=== PATIENT | male | born 1990 | race Caucasian/White ===

== ENCOUNTER 2021-05-14 02:27 | Emergency (ER) | payer OTHER ==
--- NOTE | 2021-05-14 02:57 | EDM.PDOC ---
ED HPI GENERAL MEDICAL PROBLEM - General Chief Complaint: Abdominal Pain Stated Complaint: VOMITING FOR 4 DAYS/NOW HAS BLOOD IN VOMIT Time Seen by Provider: 05/14/21 02:49 Source of Information: Reports: Patient History Limitations: Reports: No Limitations - History of Present Illness INITIAL COMMENTS - FREE TEXT/NARRATIVE: Patient is a 30-year-old male who states he has been very ill for the last 4 days. Patient has been vomiting continuously and also having diarrhea which she is treated with some guhv-xhp-vnzokst medicine with some relief. Patient notes today he has had some blood in his emesis that is not coffee-ground in nature but looks like "Tarun-Aid". Patient is complaining of severe epigastric pain that is worse when he tries to eat or drink anything. He states before this started he did drink alcohol on a daily basis. He denies ever having similar symptoms in the past has no history of pancreatitis or gallstones or ulcers. He denies having any bloody or tarry looking stool. Patient is complaining of having rigors but denies any fever but feels sweaty. He is complaining of having dysuria without hematuria. Patient has no previous abdominal surgeries. It is unclear to me why he waited 4 days before he came in with these symptoms. Duration: Day(s): (Four) Location: Reports: Abdomen Quality: Reports: Ache, Throbbing Severity: Severe Improves with: Reports: None Worsens with: Reports: Eating Associated Symptoms: Reports: Diaphoresis, Fever/Chills, Malaise, Nausea/Vomiting. Denies: Cough, Shortness of Breath Upper Abdomen Pain Score (Numeric/FACES): 7 - Related Data Allergies Allergy/AdvReac Type Severity Reaction Status Date / Time No Known Allergies Allergy Verified 05/14/21 02:42 Home Meds: Home Meds LORazepam [Ativan] 1 mg PO Q8H PRN #10 tab 05/14/21 [Rx] Past Medical History - Past Surgical History HEENT Surgical History: Reports: Myringotomy w Tube(s) Social & Family History - Tobacco Use Tobacco Use Status *Q: Light Tobacco User Years of Tobacco use: 10 Packs/Tins Daily: 0.2 - Caffeine Use Caffeine Use: Reports: Coffee - Recreational Drug Use Recreational Drug Use: Yes Recreational Drug Type: Reports: Marijuana/Hashish Recreational Drug Use Frequency: Rarely ED ROS GENERAL - Review of Systems Review Of Systems: Comprehensive ROS is negative, except as noted in HPI. ED EXAM, GI/ABD - Physical Exam Exam: See Below Exam Limited By: No Limitations General Appearance: Alert, Anxious, Moderate Distress Eyes: Bilateral: Normal Appearance Head: Normocephalic Neck: Normal Inspection, Supple, Non-Tender Respiratory/Chest: No Respiratory Distress, Lungs Clear, Normal Breath Sounds Cardiovascular: Regular Rate, Rhythm, No Edema, No JVD GI/Abdominal Exam: Normal Bowel Sounds, No Organomegaly, No Distention, Tender (Patient is most tender in his upper abdomen in the epigastric region.) Back Exam: Normal Inspection. No: CVA Tenderness (L), CVA Tenderness (R) Extremities: Normal Inspection Neurological: Alert, Oriented Psychiatric: Anxious Skin Exam: Warm, Normal Color, No Rash. No: Diaphoretic Lymphatic: No Adenopathy Course - Vital Signs Text/Narrative:: Patient feels better with IV fluids and medications. He is gotten more jittery and even after being given lorazepam IV. His lab work is all normal. I am thinking at this point he is having somewhat drug withdrawal symptoms. He is moving continuously pacing around the room for this reason his IV came out. I am discharging him home with a prescription for some lorazepam and advised him not to drink any alcohol and use yrvz-ahe-stabdno Prilosec and antiacids as needed. He may return to emergency department if symptoms are worse. Last Recorded V/S: Last Vital Signs Temp 96.2 F L 05/14/21 02:38 Pulse 113 H 05/14/21 02:38 Resp 18 05/14/21 02:38 BP 153/105 H 05/14/21 02:38 Pulse Ox 95 05/14/21 02:38 - Orders/Labs/Meds Orders: Active Orders 24 hr Category Date Time Status Peripheral IV Care [RC] . DIRECTED Care 05/14/21 03:01 Active UA W/O MICROSCOPIC [URIN] Stat Lab 05/14/21 03:00 Ordered Sodium Chloride 0.9% [Saline Flush] Med 05/14/21 03:01 Active 10 ml FLUSH ASDIRECTED PRN Peripheral IV Insertion Adult [OM.PC] Routine Oth 05/14/21 03:00 Ordered Medication Orders Sodium Chloride (Sodium Chloride 0.9% 10 Ml Syringe) 10 ml FLUSH ASDIRECTED PRN PRN Reason: Keep Vein Open Last Admin: 05/14/21 03:10 Dose: 10 ml Documented by: TRE Labs: Laboratory Tests 05/14/21 05/14/21 05/14/21 Range/Units 03:05 03:05 03:20 WBC 8.34 (4.23-9.07) K/mm3 RBC 5.08 (4.63-6.08) M/mm3 Hgb 15.7 (13.7-17.5) gm/dl Hct 44.0 (40.1-51.0) % MCV 86.6 (79.0-92.2) fl MCH 30.9 (25.7-32.2) pg MCHC 35.7 H (32.2-35.5) g/dl RDW Std Deviation 40.7 (35.1-43.9) fL Plt Count 241 (163-337) K/mm3 MPV 10.7 (9.4-12.3) fl Neutrophils % (Manual) 50 (40-60) % Band Neutrophils % 0 (0-10) % Lymphocytes % (Manual) 39 (20-40) % Atypical Lymphs % 0 % Monocytes % (Manual) 7 (2-10) % Eosinophils % (Manual) 3 (0.8-7.0) % Basophils % (Manual) 1 (0.2-1.2) Platelet Estimate Adequate RBC Morph Comment Normal Sodium 149 H (136-145) mEq/L Potassium 4.1 (3.5-5.1) mEq/L Chloride 111 H (98-107) mEq/L Carbon Dioxide 27 (21-32) mEq/L Anion Gap 15.1 H (5-15) BUN 11 (7-18) mg/dL Creatinine 1.3 (0.7-1.3) mg/dL Est Cr Clr Drug Dosing 89.54 mL/min Estimated GFR (MDRD) > 60 (>60) mL/min BUN/Creatinine Ratio 8.5 L (14-18) Glucose 113 H (70-99) mg/dL Lactic Acid 0.7 (0.4-2.0) mmol/L Calcium 8.1 L (8.5-10.1) mg/dL Total Bilirubin 0.4 (0.2-1.0) mg/dL AST 33 (15-37) U/L ALT 46 (16-63) U/L Alkaline Phosphatase 77 (46-116) U/L Total Protein 7.4 (6.4-8.2) g/dl Albumin 3.7 (3.4-5.0) g/dl Globulin 3.7 gm/dL Albumin/Globulin Ratio 1.0 (1-2) Lipase 174 (73-393) U/L Meds: Medications Generic Name Dose Route Start Last Admin Trade Name Frereji PRN Reason Stop Dose Admin Sodium Chloride 10 ml 05/14/21 03:01 05/14/21 03:10 Sodium Chloride 0.9% 10 Ml Syringe FLUSH 10 ml ASDIRECTED PRN Administration Keep Vein Open Discontinued Medications Generic Name Dose Route Start Last Admin Trade Name Dannieq PRN Reason Stop Dose Admin Hydromorphone HCl 1 mg 05/14/21 03:00 05/14/21 03:09 Hydromorphone 1 Mg/Ml Syringe IVPUSH 05/14/21 03:01 1 mg ONETIME ONE Administration Sodium Chloride 1,000 mls @ 1,000 mls/hr 05/14/21 03:00 05/14/21 03:09 Normal Saline IV 05/14/21 03:59 1,000 mls/hr ONETIME ONE Administration Lorazepam 1 mg 05/14/21 03:34 05/14/21 03:41 Lorazepam 2 Mg/Ml Sdv IVPUSH 05/14/21 03:35 1 mg ONETIME ONE Administration Ondansetron HCl 4 mg 05/14/21 03:00 05/14/21 03:09 Ondansetron 4 Mg/2 Ml Sdv IVPUSH 05/14/21 03:01 4 mg ONETIME ONE Administration Pantoprazole Sodium 80 mg 05/14/21 03:01 05/14/21 03:09 Pantoprazole 40 Mg Vial IVPUSH 05/14/21 03:02 80 mg BOLUS ONE Administration Departure - Departure Time of Disposition: 04:07 Disposition: Home, Self-Care 01 Condition: Good Clinical Impression: Gastritis, Withdrawal complaint - Discharge Information Instructions: Gastritis, Adult, [id number] Referrals: PCP,Not In Area [Primary Care Provider] - Forms: ED Department Discharge Additional Instructions: Do not drink any alcohol. Cizg-jtd-bzouvri Prilosec and antiacids as needed. Lorazepam as needed. Go to detox if indicated. Return to ER if worse. Follow- up with PCP if symptoms continue. Clear liquid diet advance as tolerated. Sepsis Event Note (ED) - Evaluation Sepsis Screening Result: Possible Sepsis Risk - Focused Exam Vital Signs: Vital Signs Temp Pulse Resp BP Pulse Ox 05/14/21 02:38 96.2 F L 113 H 18 153/105 H 95 - My Orders Last 24 Hours: My Active Orders 05/14/21 03:00 UA W/O MICROSCOPIC [URIN] Stat Peripheral IV Insertion Adult [OM.PC] Routine 05/14/21 03:01 Peripheral IV Care [RC] . DIRECTED Sodium Chloride 0.9% [Saline Flush] 10 ml FLUSH ASDIRECTED PRN - Assessment/Plan Last 24 Hours: My Active Orders 05/14/21 03:00 UA W/O MICROSCOPIC [URIN] Stat Peripheral IV Insertion Adult [OM.PC] Routine 05/14/21 03:01 Peripheral IV Care [RC] . DIRECTED Sodium Chloride 0.9% [Saline Flush] 10 ml FLUSH ASDIRECTED PRN
[2021-05-14] MEDS ORDERED: Ondansetron 4 MG/2 ML SDV IVPUSH ONE (03:00)
[2021-05-14] MEDS ORDERED: HYDROmorphone 1 MG/ML Syringe IVPUSH ONE (03:00)
[2021-05-14] MEDS ORDERED: Sodium Chloride 0.9% 1,000 ML IV ONE (03:00)
[2021-05-14] MEDS ORDERED: Sodium Chloride 0.9% 10 ML Syringe FLUSH PRN (03:01)
[2021-05-14] MEDS ORDERED: Pantoprazole 40 MG Vial IVPUSH ONE (03:01)
[2021-05-14] MEDS ORDERED: LORazepam 2 MG/ML SDV IVPUSH ONE (03:34)
== END 2021-05-14 04:18 | disposition home or self-care (01) ==
LOC: JD.ED 02:27
DX: K29.70 Gastritis, unspecified, without bleeding (principal); F19.239 Other psychoactive substance dependence with withdrawal, unspecified; Z72.0 Tobacco use
CPT/HCPCS: 36415; 80053; 83605; 83690; 85007; 85027; 96374; 96375; 99284; C9113; J1170; J2060; J2405; J7030

== ENCOUNTER 2021-05-25 11:41 | Emergency (ER) | payer OTHER ==
[2021-05-25] MEDS ORDERED: Sodium Chloride 0.9% 10 ML Syringe FLUSH PRN (12:04)
[2021-05-25] MEDS ORDERED: Sodium Chloride 0.9% 1,000 ML IV ONE (12:07)
[2021-05-25] MEDS ORDERED: Pantoprazole 40 MG Vial IVPUSH ONE (12:07)
[2021-05-25] MEDS ORDERED: Famotidine 20 MG/2 ML SDV IVPUSH ONE (12:10)
--- NOTE | 2021-05-25 12:22 | EDM.PDOC ---
ED HPI GENERAL MEDICAL PROBLEM - General Chief Complaint: Abdominal Pain Stated Complaint: ABDOMINAL PAIN Time Seen by Provider: 05/25/21 11:47 Source of Information: Reports: Patient History Limitations: Reports: No Limitations - History of Present Illness INITIAL COMMENTS - FREE TEXT/NARRATIVE: 30-year-old male presents the emergency department today with a 4-day history of nausea, generalized abdominal pain however primarily in the epigastric area, watery diarrhea that is brown in color, headache, diaphoresis and 2 episodes of vomiting bile colored emesis today. He has had a cough productive of dark vázquez- colored sputum. He is a smoker. He also does admit to drinking at least 3 days out of the week several drinks at a time. He was seen here in the emergency department 11 days ago with complaints of a 4-day history of epigastric discomfort and vomiting blood. At that time he was instructed to start taking a proton pump inhibitor daily however he states he has not done this. His appetite has been poor over the course the last 4 days. He also reports burning with urination. Patient states that he had his [place] Covid vaccine with the second dose being on March 08. He denies taking any prescription medications and he does not have a primary care provider in this area as he states he just moved here from [place]. Epigastric Pain Score (Numeric/FACES): 8 - Related Data Allergies Allergy/AdvReac Type Severity Reaction Status Date / Time No Known Allergies Allergy Verified 05/25/21 11:51 Home Meds: Home Meds . [No Known Home Meds] 05/25/21 [History] Past Medical History Endocrine/Metabolic History: Reports: Obesity/BMI 30+ - Past Surgical History HEENT Surgical History: Reports: Myringotomy w Tube(s) Social & Family History - Tobacco Use Tobacco Use Status *Q: Current Every Day Tobacco User Years of Tobacco use: 2 Packs/Tins Daily: 0.5 - Caffeine Use Caffeine Use: Reports: Coffee - Recreational Drug Use Recreational Drug Use: No ED ROS GENERAL - Review of Systems Review Of Systems: Comprehensive ROS is negative, except as noted in HPI. ED EXAM, GI/ABD - Physical Exam Exam: See Below Exam Limited By: No Limitations General Appearance: Alert, WD/WN, Mild Distress Ears: Normal External Exam, Hearing Grossly Normal Nose: Normal Inspection Throat/Mouth: Normal Inspection, Normal Lips, Normal Voice, No Airway Compromise Head: Atraumatic, Normocephalic Neck: Normal Inspection, Supple Respiratory/Chest: No Respiratory Distress, No Accessory Muscle Use, Chest Non- Tender, Crackles (Fine crackles noted to bilateral bases) Cardiovascular: Normal Peripheral Pulses, Regular Rate, Rhythm, No Edema, No Mur mur GI/Abdominal Exam: Normal Bowel Sounds, Soft, No Distention, Tender (Noted to all quadrants however primarily in the epigastric area) (Male) Exam: Deferred Rectal (Males) Exam: Deferred Back Exam: Normal Inspection, Full Range of Motion Extremities: Normal Inspection, Normal Range of Motion, Non-Tender, No Pedal Edema, Normal Capillary Refill Neurological: Alert, Oriented, Normal Cognition Psychiatric: Normal Affect, Normal Mood Skin Exam: Warm, Dry, Intact, Normal Color, No Rash Lymphatic: No Adenopathy #1 Interpretation EKG Date: 05/25/21 Time: 12:22 Rhythm: NSR Rate (Beats/Min): 73 [place]: Normal P-Wave: Present QRS: Normal ST-T: Normal QT: Normal EKG Interpretation Comments: Per Dr. Crocker interpretation: Sinus rhythm at 73 bpm; initial poor R wave progression; T wave inversion V1 and V2; diffuse early repolarization pattern Course - Vital Signs Text/Narrative:: As stated above, patient presents with a 4-day history of cough, nausea, vomiting, watery diarrhea, and generalized abdominal pain however primarily in the epigastric area. He also notes urinary symptoms. Upon assessment the patient does have crackles noted in the bilateral bases. Generalized abdominal tenderness with palpation however more severe tenderness in the epigastric area. He is afebrile. We have ordered an EKG, portable view of the chest, labs to include a CBC, CMP, magnesium, CRP, troponin, and a UA with micro and culture if indicated. We will also give him a liter of normal saline IV as he is likely dehydrated, 40 mg Protonix IV and 20 mg of Pepcid IV due to the epigastric discomfort nausea and vomiting and history of alcohol consumption. Last Recorded V/S: Last Vital Signs Temp 97.8 F 05/25/21 14:38 Pulse 62 05/25/21 14:38 Resp 16 05/25/21 14:38 BP 142/113 H 05/25/21 14:38 Pulse Ox 98 05/25/21 14:38 - Orders/Labs/Meds Orders: Active Orders 24 hr Category Date Time Status Sodium Chloride 0.9% [Saline Flush] Med 05/25/21 12:04 Active 10 ml FLUSH ASDIRECTED PRN Saline Lock Insert [OM.PC] Stat Oth 05/25/21 12:04 Ordered Medication Orders Sodium Chloride (Sodium Chloride 0.9% 10 Ml Syringe) 10 ml FLUSH ASDIRECTED PRN PRN Reason: Keep Vein Open Last Admin: 05/25/21 12:43 Dose: 10 ml Documented by: MELINA Labs: Laboratory Tests 05/25/21 05/25/21 05/25/21 Range/Units 12:35 12:43 12:43 WBC 3.85 L (4.23-9.07) K/mm3 RBC 5.13 (4.63-6.08) M/mm3 Hgb 15.9 (13.7-17.5) gm/dl Hct 44.7 (40.1-51.0) % MCV 87.1 (79.0-92.2) fl MCH 31.0 (25.7-32.2) pg MCHC 35.6 H (32.2-35.5) g/dl RDW Std Deviation 41.8 (35.1-43.9) fL Plt Count 211 (163-337) K/mm3 MPV 10.1 (9.4-12.3) fl Neut % (Auto) 46.3 (34.0-67.9) % Lymph % (Auto) 33.5 (21.8-53.1) % [place] % (Auto) 16.6 H (5.3-12.2) % Eos % (Auto) 2.3 (0.8-7.0) Baso % (Auto) 1.0 (0.1-1.2) % Neut # (Auto) 1.78 (1.78-5.38) K/mm3 Lymph # (Auto) 1.29 L (1.32-3.57) K/mm3 [place] # (Auto) 0.64 (0.30-0.82) K/mm3 Eos # (Auto) 0.09 (0.04-0.54) K/mm3 Baso # (Auto) 0.04 (0.01-0.08) K/mm3 Manual Slide Review Abnormal smear Sodium 141 (136-145) mEq/L Potassium 4.1 (3.5-5.1) mEq/L Chloride 104 (98-107) mEq/L Carbon Dioxide 26 (21-32) mEq/L Anion Gap 15.1 H (5-15) BUN 19 H (7-18) mg/dL Creatinine 1.2 (0.7-1.3) mg/dL Est Cr Clr Drug Dosing 97.00 mL/min Estimated GFR (MDRD) > 60 (>60) mL/min BUN/Creatinine Ratio 15.8 (14-18) Glucose 116 H (70-99) mg/dL Calcium 7.8 L (8.5-10.1) mg/dL Magnesium 1.8 (1.8-2.4) mg/dL Total Bilirubin 0.5 (0.2-1.0) mg/dL AST TNP ALT TNP Alkaline Phosphatase 69 (46-116) U/L Troponin I < 0.017 (0.00-0.056) ng/mL C-Reactive Protein <0.2 (<1.0) mg/dL Total Protein 7.1 (6.4-8.2) g/dl Albumin 3.4 (3.4-5.0) g/dl Globulin 3.7 gm/dL Albumin/Globulin Ratio 0.9 L (1-2) Urine Color (Yellow) Urine Appearance (Clear) Urine pH (5.0-8.0) Ur Specific [place] (1.005-1.030) Urine Protein (Negative) Urine Glucose (UA) (Negative) Urine Ketones (Negative) Urine Occult Blood (Negative) Urine Nitrite (Negative) Urine Bilirubin (Negative) Urine Urobilinogen (0.2-1.0) Ur Leukocyte Esterase (Negative) Urine Opiates Screen (KGSWUU=840) Ur Buprenorphine Scrn (CUTOFF=10) Ur Oxycodone Screen (MNX3ZK=135) Urine Methadone Screen (GMU4VM=054) Ur Propoxyphene Screen (KPNOZP=583) Ur Barbiturates Screen (FCILWH=090) Ur Tricyclics Screen (LJXKGG=832) Ur Phencyclidine Scrn (CUTOFF=25) Ur Amphetamine Screen (WPHQDW=568) U Methamphetamines Scrn (RRZPHD=004) U Benzodiazepines Scrn (UNFLBP=059) U Cocaine Metab Screen (DZJPRA=063) U Marijuana (THC) Screen (CUTOFF=50) SARS-CoV-2 RNA (NICOLE) Negative (NEGATIVE) 05/25/21 05/25/21 Range/Units 13:33 13:33 WBC (4.23-9.07) K/mm3 RBC (4.63-6.08) M/mm3 Hgb (13.7-17.5) gm/dl Hct (40.1-51.0) % MCV (79.0-92.2) fl MCH (25.7-32.2) pg MCHC (32.2-35.5) g/dl RDW Std Deviation (35.1-43.9) fL Plt Count (163-337) K/mm3 MPV (9.4-12.3) fl Neut % (Auto) (34.0-67.9) % Lymph % (Auto) (21.8-53.1) % [place] % (Auto) (5.3-12.2) % Eos % (Auto) (0.8-7.0) Baso % (Auto) (0.1-1.2) % Neut # (Auto) (1.78-5.38) K/mm3 Lymph # (Auto) (1.32-3.57) K/mm3 [place] # (Auto) (0.30-0.82) K/mm3 Eos # (Auto) (0.04-0.54) K/mm3 Baso # (Auto) (0.01-0.08) K/mm3 Manual Slide Review Sodium (136-145) mEq/L Potassium (3.5-5.1) mEq/L Chloride (98-107) mEq/L Carbon Dioxide (21-32) mEq/L Anion Gap (5-15) BUN (7-18) mg/dL Creatinine (0.7-1.3) mg/dL Est Cr Clr Drug Dosing mL/min Estimated GFR (MDRD) (>60) mL/min BUN/Creatinine Ratio (14-18) Glucose (70-99) mg/dL Calcium (8.5-10.1) mg/dL Magnesium (1.8-2.4) mg/dL Total Bilirubin (0.2-1.0) mg/dL AST ALT Alkaline Phosphatase (46-116) U/L Troponin I (0.00-0.056) ng/mL C-Reactive Protein (<1.0) mg/dL Total Protein (6.4-8.2) g/dl Albumin (3.4-5.0) g/dl Globulin gm/dL Albumin/Globulin Ratio (1-2) Urine Color Yellow (Yellow) Urine Appearance Clear (Clear) Urine pH 7.0 (5.0-8.0) Ur Specific [place] 1.025 (1.005-1.030) Urine Protein Negative (Negative) Urine Glucose (UA) Negative (Negative) Urine Ketones Negative (Negative) Urine Occult Blood Negative (Negative) Urine Nitrite Negative (Negative) Urine Bilirubin Negative (Negative) Urine Urobilinogen 0.2 (0.2-1.0) Ur Leukocyte Esterase Negative (Negative) Urine Opiates Screen Negative (NBHMRJ=642) Ur Buprenorphine Scrn Negative (CUTOFF=10) Ur Oxycodone Screen Negative (CVU7BA=550) Urine Methadone Screen Negative (YFA2SE=617) Ur Propoxyphene Screen Negative (WHQZRX=895) Ur Barbiturates Screen Negative (RINWRZ=489) Ur Tricyclics Screen Negative (YGBZCS=147) Ur Phencyclidine Scrn Negative (CUTOFF=25) Ur Amphetamine Screen Negative (KVWKBC=233) U Methamphetamines Scrn Negative (CNBFSB=792) U Benzodiazepines Scrn Negative (QZOSVJ=416) U Cocaine Metab Screen Negative (ZIDHAM=390) U Marijuana (THC) Screen Negative (CUTOFF=50) SARS-CoV-2 RNA (NICOLE) (NEGATIVE) Meds: Medications Generic Name Dose Route Start Last Admin Trade Name Freq PRN Reason Stop Dose Admin Sodium Chloride 10 ml 05/25/21 12:04 05/25/21 12:43 Sodium Chloride 0.9% 10 Ml Syringe FLUSH 10 ml ASDIRECTED PRN Administration Keep Vein Open Discontinued Medications Generic Name Dose Route Start Last Admin Trade Name Freq PRN Reason Stop Dose Admin Al Hydroxide/Mg Hydroxide 30 0 ml 05/25/21 14:12 05/25/21 14:35 ml/ Lidocaine HCl 15 ml PO 05/25/21 14:13 45 ml ONETIME ONE Administration Famotidine 20 mg 05/25/21 12:10 05/25/21 12:48 Famotidine 20 Mg/2 Ml Sdv IVPUSH 05/25/21 12:11 20 mg ONETIME ONE Administration Hydromorphone HCl 1 mg 05/25/21 12:59 05/25/21 13:03 Hydromorphone 1 Mg/Ml Syringe IVPUSH 05/25/21 13:00 1 mg ONETIME ONE Administration Sodium Chloride 1,000 mls @ 999 mls/hr 05/25/21 12:07 05/25/21 12:51 Normal Saline IV 05/25/21 13:07 999 mls/hr ONETIME ONE Administration Lorazepam 0.5 mg 05/25/21 14:12 05/25/21 14:34 Lorazepam 2 Mg/Ml Sdv IVPUSH 05/25/21 14:13 0.5 mg ONETIME ONE Administration Ondansetron HCl 4 mg 05/25/21 12:59 05/25/21 13:09 Ondansetron 4 Mg/2 Ml Sdv IVPUSH 05/25/21 13:00 4 mg ONETIME ONE Administration Pantoprazole Sodium 40 mg 05/25/21 12:07 05/25/21 12:45 Pantoprazole 40 Mg Vial IVPUSH 05/25/21 12:08 40 mg ONETIME ONE Administration - Re-Assessments/Exams Free Text/Narrative Re-Assessment/Exam: 05/25/21 12:55 Radiologist impression portable view of the chest: Nothing acute is seen on portable chest x-ray. 05/25/21 14:15 Hematology reveals a WBC of 3.85, hemoglobin 15.9, hematocrit 44.7, platelet count 211 Chemistry reveals a sodium of 141, potassium 4.1, carbon dioxide 26, anion gap 15.1, BUN 19, creatinine 1.2, glucose 116, calcium 7.8, magnesium 1.8, troponin less than 0.017, C-reactive protein less than 0.2 Urinalysis is negative Urine drug screen is negative Serology patient is Covid negative. Nursing staff notifies me that patient is requesting something for anxiety. I did go in the room and visit with the patient and he does appear to be anxious restless in the bed. I asked him what he is feeling anxious about any states that he is anxious about what is going on with him. He states that last time he was in the emergency department he did get a prescription for Ativan and is requesting more of this. I told him I would give him 1 dose of IV Ativan however he needs to follow-up with a primary care provider for prescription for this medication. He states that his generalized abdominal pain has resolved however he still having pain in the epigastric area. I am going to give him a GI cocktail to see if this helps. Discussed that we could do a CT scan on his abdomen however I do not suspect that it will show anything definitive as his lab work is essentially unremarkable. Discussed the fact that it is imperative that he start taking a proton pump inhibitor daily as this was told to him on his last emergency room visit and he did not do this. I discussed at length that he needs to stop drinking, smoking as this also contributes to ulcer formation. Discussed that he should consume only clear liquids for the next 24 hours and then advance to a bland diet. At that time, he was not happy as he states he is very hungry and wants to eat whatever he wants. His girlfriend then asks me if I will prescribe him narcotic pain medication for his GI discomfort. I again discussed at length that this would not help the pain as much as taking a proton pump inhibitor and altering his diet. She did become very agitated with me at that time. I stated that he likely will need to follow-up with a general surgeon in about a week if he continues to have epigastric discomfort and also find a primary care provider to prescribe anxiety medication. Departure - Departure Time of Disposition: 14:54 Disposition: Home, Self-Care 01 Condition: Good Clinical Impression: Gastritis Qualifiers: Gastritis type: unspecified gastritis Chronicity: unspecified Gastritis bleeding: presence of bleeding unspecified Qualified Code(s): K29.70 - Gastritis, unspecified, without bleeding - Discharge Information Instructions: Gastritis, Adult, [id number] Referrals: PCP,None [Primary Care Provider] - Forms: ED Department Discharge Additional Instructions: You were seen in the emergency department today with complaints of abdominal pain primarily in the epigastric area. EKG, labs and chest x-ray were completed and were all essentially unremarkable. There is no indication that there is an infective process going on. It is likely that you have gastritis, which is inflammation of your gastric mucosa which you were diagnosed with last time you were seen in the emergency department. It is strongly recommended that you start taking [id number]-mqhudki Prilosec or Protonix daily. You may also take Pepcid rkfw-sam-fviomwe daily for the next 2 weeks in addition to the Prilosec or Protonix. You need to stop drinking alcohol, stop smoking, stop consuming caffeine, and avoid any spicy foods. These all contribute to gastritis. Recommend that you consume only a clear liquid diet for the next 24 hours and then you may advance to a bland diet thereafter. If you are still having discomfort in about a week, I strongly recommend that you follow-up with a general surgeon either at [facility] or [facility] for further evaluation as you may need to have an EGD, which is a procedure where they take a scope and look into your stomach. I also strongly recommend that you find a primary care provider in the area to manage your anxiety as you likely need to be placed on anxiety medications. Sepsis Event Note (ED) - Focused Exam Vital Signs: Vital Signs Temp Pulse Resp BP Pulse Ox 05/25/21 14:38 97.8 F 62 16 142/113 H 98 05/25/21 11:46 98.1 F 71 16 145/109 H 100 - My Orders Last 24 Hours: My Active Orders 05/25/21 12:04 Sodium Chloride 0.9% [Saline Flush] 10 ml FLUSH ASDIRECTED PRN Saline Lock Insert [OM.PC] Stat - Assessment/Plan Last 24 Hours: My Active Orders 05/25/21 12:04 Sodium Chloride 0.9% [Saline Flush] 10 ml FLUSH ASDIRECTED PRN Saline Lock Insert [OM.PC] Stat
--- NOTE | 2021-05-25 12:52 | CR ---
Chest: Portable view of the chest was obtained. Comparison: No prior chest imaging is available. Heart size and mediastinum are normal. Lungs are clear with no acute parenchymal change. No acute osseous abnormality is seen. Impression: 1. Nothing acute is seen on portable chest x-ray. Diagnostic code #1
[2021-05-25] MEDS ORDERED: HYDROmorphone 1 MG/ML Syringe IVPUSH ONE (12:59)
[2021-05-25] MEDS ORDERED: Ondansetron 4 MG/2 ML SDV IVPUSH ONE (12:59)
[2021-05-25] MEDS ORDERED: LORazepam 2 MG/ML SDV IVPUSH ONE (14:12)
[2021-05-25] MEDS ORDERED: Alum Hydrox/Mag Hydrox/Simeth 30 ML, Lidocaine 2% 15 ML PO ONE ×2 (14:12)
== END 2021-05-25 15:15 | disposition home or self-care (01) ==
LOC: JD.ED 11:41
DX: K29.70 Gastritis, unspecified, without bleeding (principal); E66.9 Obesity, unspecified; Z68.30 Body mass index [BMI] 30.0-30.9, adult; Z72.0 Tobacco use; Z20.822 Contact with and (suspected) exposure to COVID-19
CPT/HCPCS: 36415; 71045; 80053; 80306; 81003; 83735; 84484; 85025; 86140; 87635; 96374; 96375; 99284; A9270; C9113; J1170; J2060; J2405; J3490; J7030; 93010; U0002

== ENCOUNTER 2022-01-02 07:42 | Inpatient (IN) | payer SELFPAY ==
[2022-01-02] MEDS ORDERED: HYDROmorphone 0.5 MG/0.5 ML Syringe IVPUSH ONE ×3 (08:16→11:23)
[2022-01-02] MEDS ORDERED: Ondansetron 4 MG/2 ML SDV IVPUSH ONE (08:16)
[2022-01-02] MEDS: Sodium Chloride 0.9% 10 ML Syringe FLUSH PRN ×2 (08:30→10:12)
[2022-01-02] MEDS ORDERED: Sodium Chloride 0.9% 1,000 ML IV SCH (08:30)
[2022-01-02] MEDS ORDERED: Lactated Ringers 1,000 ML IV ONE (09:29)
[2022-01-02] MEDS ORDERED: Iopamidol 612 MG/ML 50 ML SDV IVPUSH ONE (10:11)
[2022-01-02] MEDS ORDERED: Iopamidol 612 MG/ML 100 ML Bottle IVPUSH ONE (10:11)
[2022-01-02] MEDS ORDERED: Sodium Chloride 0.9% 10 ML Syringe FLUSH ONE (10:11)
[2022-01-02] MEDS ORDERED: Sodium Chloride 0.9% 100 ML IV SCH (10:15)
[2022-01-02] MEDS ORDERED: Metoclopramide 10 MG/2 ML SDV IVPUSH ONE (11:23)
[2022-01-02] MEDS ORDERED: Lactated Ringers 1,000 ML IV SCH (12:00)
[2022-01-02] MEDS: LORazepam 2 MG/ML SDV IV PRN ×2 (13:28→21:16)
[2022-01-02] MEDS: Nicotine 14 MG/24 Hr Patch TRDERM SCH (13:30)
[2022-01-02] MEDS: HYDROmorphone 0.5 MG/0.5 ML Syringe IVPUSH PRN ×3 (14:18→18:36)
[2022-01-02] MEDS: Ondansetron 4 MG/2 ML SDV IV PRN (14:24)
[2022-01-02] MEDS: HYDROmorphone 1 MG/ML Syringe IVPUSH PRN ×2 (20:37→23:01)
[2022-01-03] MEDS: HYDROmorphone 1 MG/ML Syringe IVPUSH PRN ×5 (01:13→11:16)
[2022-01-03] MEDS: Lactated Ringers 1,000 ML IV SCH (01:18)
[2022-01-03] MEDS: LORazepam 2 MG/ML SDV IV PRN ×2 (04:50→20:53)
[2022-01-03] MEDS: Nicotine 14 MG/24 Hr Patch TRDERM SCH (08:00)
[2022-01-03] MEDS: Ondansetron 4 MG/2 ML SDV IV PRN (08:00)
[2022-01-03] MEDS ORDERED: Magnesium Sulfate/Water 4 GM in Premix Bag 1 BAG IV ONE (09:00)
[2022-01-03] MEDS ORDERED: Enoxaparin 40 MG/0.4 ML Syringe SUBCUT SCH (09:00)
[2022-01-03] MEDS ORDERED: Naloxone 0.4 MG/ML SDV IVPUSH PRN (09:33)
[2022-01-03] MEDS ORDERED: Ondansetron 4 MG/2 ML SDV IVPUSH PRN (09:33)
[2022-01-03] MEDS ORDERED: diphenhydrAMINE 50 MG/ML SDV IVPUSH PRN (09:33)
[2022-01-03] MEDS ORDERED: diphenhydrAMINE 25 MG Cap PO PRN (09:33)
[2022-01-03] MEDS ORDERED: Iopamidol 612 MG/ML 50 ML SDV IVPUSH ONE (10:02)
[2022-01-03] MEDS ORDERED: Sodium Chloride 0.9% 10 ML Syringe FLUSH PRN (10:02)
[2022-01-03] MEDS ORDERED: Iopamidol 612 MG/ML 100 ML Bottle IVPUSH ONE (10:02)
[2022-01-03] MEDS ORDERED: HYDROmorphone 1 MG/ML Syringe IVPUSH PRN (11:30)
[2022-01-03] MEDS: Apixaban 5 MG Tab PO SCH ×2 (12:33→20:53)
[2022-01-03] MEDS ORDERED: Metoclopramide 10 MG/2 ML SDV IVPUSH PRN (12:45)
[2022-01-03] MEDS: HYDROmorphone/Normal Saline 6 MG/30 ML PCA Vial IV PRN ×2 (12:53→20:58)
[2022-01-03] MEDS: metroNIDAZOLE/Normal Saline 500 MG in Premix Bag 1 BAG IV SCH ×2 (13:04→17:31)
[2022-01-03] MEDS: Levofloxacin/Dextrose 5%-Water 750 MG in Premix Bag 1 BAG IV SCH (14:27)
[2022-01-03] MEDS: Docusate Sodium 100 MG Cap PO PRN (21:00)
[2022-01-04] MEDS: metroNIDAZOLE/Normal Saline 500 MG in Premix Bag 1 BAG IV SCH ×4 (00:50→17:16)
[2022-01-04] MEDS: LORazepam 2 MG/ML SDV IVPUSH PRN ×12 (00:51→22:59)
[2022-01-04] MEDS: Lactated Ringers 1,000 ML IV SCH ×3 (02:44→17:53)
[2022-01-04] MEDS: Nicotine 14 MG/24 Hr Patch TRDERM SCH (09:27)
[2022-01-04] MEDS: Apixaban 5 MG Tab PO SCH ×2 (09:27→20:49)
[2022-01-04] MEDS: Levofloxacin/Dextrose 5%-Water 750 MG in Premix Bag 1 BAG IV SCH (09:29)
[2022-01-04] MEDS: Thiamine 100 MG Tab PO SCH (11:32)
[2022-01-04] MEDS: chlordiazePOXIDE 25 MG Cap PO SCH ×2 (11:32→20:18)
[2022-01-04] MEDS: Folic Acid 1 MG Tab PO SCH (11:32)
[2022-01-04] MEDS: LORazepam 1 MG Tab PO PRN (11:39)
[2022-01-04] MEDS: Docusate Sodium 100 MG Cap PO PRN (12:54)
[2022-01-04] MEDS: HYDROmorphone 0.5 MG/0.5 ML Syringe IVPUSH PRN ×3 (13:47→22:39)
[2022-01-05] MEDS: HYDROmorphone 0.5 MG/0.5 ML Syringe IVPUSH PRN ×4 (02:07→15:09)
[2022-01-05] MEDS: metroNIDAZOLE/Normal Saline 500 MG in Premix Bag 1 BAG IV SCH ×3 (02:08→17:32)
[2022-01-05] MEDS: Lactated Ringers 1,000 ML IV SCH ×3 (02:09→15:13)
[2022-01-05] MEDS: LORazepam 2 MG/ML SDV IVPUSH PRN ×4 (03:02→18:28)
[2022-01-05] MEDS: chlordiazePOXIDE 25 MG Cap PO SCH ×3 (04:12→20:11)
[2022-01-05] MEDS: Folic Acid 1 MG Tab PO SCH (08:15)
[2022-01-05] MEDS: Thiamine 100 MG Tab PO SCH (08:15)
[2022-01-05] MEDS: Apixaban 5 MG Tab PO SCH ×2 (08:15→20:11)
[2022-01-05] MEDS: Nicotine 14 MG/24 Hr Patch TRDERM SCH (08:30)
[2022-01-05] MEDS: Levofloxacin/Dextrose 5%-Water 750 MG in Premix Bag 1 BAG IV SCH (10:09)
[2022-01-05] MEDS: LORazepam 1 MG Tab PO PRN ×3 (11:21→20:11)
[2022-01-05] MEDS: HYDROmorphone 1 MG/ML Syringe IVPUSH PRN ×2 (18:27→22:27)
[2022-01-06] MEDS: LORazepam 2 MG/ML SDV IV PRN (01:22)
[2022-01-06] MEDS: Lactated Ringers 1,000 ML IV SCH (01:24)
[2022-01-06] MEDS: metroNIDAZOLE/Normal Saline 500 MG in Premix Bag 1 BAG IV SCH ×3 (01:26→18:28)
[2022-01-06] MEDS: HYDROmorphone 1 MG/ML Syringe IVPUSH PRN ×5 (02:29→22:43)
[2022-01-06] MEDS: chlordiazePOXIDE 25 MG Cap PO SCH ×3 (04:47→20:19)
[2022-01-06] MEDS: LORazepam 2 MG/ML SDV IVPUSH PRN (05:36)
[2022-01-06] MEDS ORDERED: Iopamidol 612 MG/ML 100 ML Bottle IVPUSH ONE (08:27)
[2022-01-06] MEDS ORDERED: Iopamidol 612 MG/ML 50 ML SDV IVPUSH ONE (08:27)
[2022-01-06] MEDS ORDERED: Sodium Chloride 0.9% 10 ML Syringe FLUSH ONE (08:27)
[2022-01-06] MEDS ORDERED: Sodium Chloride 0.9% 100 ML IV SCH (08:30)
[2022-01-06] MEDS: Sodium Chloride 0.9% 10 ML Syringe FLUSH PRN (08:40)
[2022-01-06] MEDS: Thiamine 100 MG Tab PO SCH (08:46)
[2022-01-06] MEDS: oxyCODONE 5 MG Tab PO PRN ×3 (08:46→20:24)
[2022-01-06] MEDS: cloNIDine 0.1 MG Tab PO PRN ×2 (08:48→17:14)
[2022-01-06] MEDS: Apixaban 5 MG Tab PO SCH ×2 (08:48→20:19)
[2022-01-06] MEDS: Nicotine 14 MG/24 Hr Patch TRDERM SCH (08:49)
[2022-01-06] MEDS: Folic Acid 1 MG Tab PO SCH (10:04)
[2022-01-06] MEDS: Levofloxacin/Dextrose 5%-Water 750 MG in Premix Bag 1 BAG IV SCH (11:08)
[2022-01-06] MEDS: Docusate Sodium 100 MG Cap PO PRN (11:11)
[2022-01-06] MEDS ORDERED: traZODone 50 MG Tab PO PRN (20:15)
[2022-01-07] MEDS: oxyCODONE 5 MG Tab PO PRN ×2 (02:32→08:27)
[2022-01-07] MEDS: cloNIDine 0.1 MG Tab PO PRN (02:36)
[2022-01-07] MEDS: metroNIDAZOLE/Normal Saline 500 MG in Premix Bag 1 BAG IV SCH ×2 (02:37→09:11)
[2022-01-07] MEDS: chlordiazePOXIDE 25 MG Cap PO SCH (03:49)
[2022-01-07] MEDS: HYDROmorphone 1 MG/ML Syringe IVPUSH PRN (05:21)
[2022-01-07] MEDS: Folic Acid 1 MG Tab PO SCH (08:27)
[2022-01-07] MEDS: Apixaban 5 MG Tab PO SCH (08:27)
[2022-01-07] MEDS: Thiamine 100 MG Tab PO SCH (08:27)
[2022-01-07] MEDS: Nicotine 14 MG/24 Hr Patch TRDERM SCH (08:29)
[2022-01-07] MEDS: Levofloxacin/Dextrose 5%-Water 750 MG in Premix Bag 1 BAG IV SCH (09:11)
== END 2022-01-07 10:00 | disposition home or self-care (01) | DRG 438 ==
LOC: JD.ED 07:42 → JD.MS 12:37 → JD.ICU 01-04 10:30
PROVIDERS: ADMIT Emergency Medicine; ATTEND Internal Medicine
DX: K85.20 Alcohol induced acute pancreatitis without necrosis or infection (principal); I81 Portal vein thrombosis; K55.059 Acute (reversible) ischemia of intestine, part and extent unspecified; F10.239 Alcohol dependence with withdrawal, unspecified; R44.0 Auditory hallucinations; R41.0 Disorientation, unspecified; F17.210 Nicotine dependence, cigarettes, uncomplicated; R44.1 Visual hallucinations; M62.830 Muscle spasm of back; E86.0 Dehydration; E66.9 Obesity, unspecified; Z20.822 Contact with and (suspected) exposure to COVID-19; Z79.899 Other long term (current) drug therapy; Z68.32 Body mass index [BMI] 32.0-32.9, adult
CPT/HCPCS: 36415; 74177; 74177-26; 80053; 80061; 83605; 83690; 83735; 85025; 87040; 94762; 96374; 96375; 96376; 99222; 99232; 99233; 99239; 99285; 99285-25; A9270-GY; J1170; J1650; J1956; J2060; J2405; J2765; J3475; J3490; J7030; J7120; Q9967; U0002

== ENCOUNTER 2022-01-09 14:31 | Emergency (ER) | payer SELFPAY ==
[2022-01-09] MEDS: Sodium Chloride 0.9% 10 ML Syringe FLUSH PRN ×2 (15:00→16:01)
[2022-01-09] MEDS ORDERED: HYDROmorphone 0.5 MG/0.5 ML Syringe IVPUSH ONE (15:07)
[2022-01-09] MEDS ORDERED: Sodium Chloride 0.9% 1,000 ML IV STA (15:07)
[2022-01-09] MEDS ORDERED: Ondansetron 4 MG/2 ML SDV IVPUSH ONE (15:07)
[2022-01-09] MEDS ORDERED: Iopamidol 612 MG/ML 50 ML SDV IVPUSH ONE (15:13)
[2022-01-09] MEDS ORDERED: Iopamidol 612 MG/ML 100 ML Bottle IVPUSH ONE (15:13)
[2022-01-09] MEDS ORDERED: Sodium Chloride 0.9% 100 ML IV SCH (15:15)
[2022-01-09] MEDS ORDERED: Ketorolac 30 MG/ML SDV IVPUSH ONE (16:39)
[2022-01-09] MEDS ORDERED: Acetaminophen/oxyCODONE 325-5 MG Tab PO ONE (16:41)
== END 2022-01-09 17:22 | disposition home or self-care (01) ==
LOC: JD.ED 14:31
DX: K85.20 Alcohol induced acute pancreatitis without necrosis or infection (principal); K55.059 Acute (reversible) ischemia of intestine, part and extent unspecified; E66.9 Obesity, unspecified; Z79.01 Long term (current) use of anticoagulants; Z72.0 Tobacco use; Z20.822 Contact with and (suspected) exposure to COVID-19; Z68.30 Body mass index [BMI] 30.0-30.9, adult
CPT/HCPCS: 36415; 74177; 80053; 80307; 83690; 85025; 86140; 87635; 96374; 96375; 99284; A9270; J1170; J1885; J2405; J3490; J7030; Q9967; 99285; U0002

== ENCOUNTER 2022-02-17 16:49 | Emergency (ER) | payer SELFPAY ==
[2022-02-17] MEDS ORDERED: Ondansetron 4 MG/2 ML SDV IVPUSH ONE (16:58)
[2022-02-17] MEDS ORDERED: Sodium Chloride 0.9% 10 ML Syringe FLUSH PRN (16:58)
[2022-02-17] MEDS ORDERED: LORazepam 2 MG/ML SDV IVPUSH ONE (16:59)
[2022-02-17] MEDS ORDERED: HYDROmorphone 0.5 MG/0.5 ML Syringe IVPUSH ONE ×2 (16:59→18:39)
[2022-02-17] MEDS ORDERED: Sodium Chloride 0.9% 1,000 ML IV SCH (17:00)
== END 2022-02-17 19:15 | disposition home or self-care (01) ==
LOC: JD.ED 16:49
DX: F10.230 Alcohol dependence with withdrawal, uncomplicated (principal); E66.9 Obesity, unspecified; Z68.33 Body mass index [BMI] 33.0-33.9, adult; Z79.01 Long term (current) use of anticoagulants; Z72.0 Tobacco use; Y90.0 Blood alcohol level of less than 20 mg/100 ml
CPT/HCPCS: 36415; 80053; 80307; 83690; 85025; 96374; 96375; 96376; 99284; J1170; J2060; J2405; J3490; J7030

== ENCOUNTER 2022-04-13 04:21 | Emergency (ER) | payer SELFPAY | END 2022-04-13 06:42 | disposition home or self-care (01) | LOC: JD.ED 04:21 | DX: F11.10 Opioid abuse, uncomplicated (principal); F10.920 Alcohol use, unspecified with intoxication, uncomplicated; F41.9 Anxiety disorder, unspecified; F17.210 Nicotine dependence, cigarettes, uncomplicated; E66.9 Obesity, unspecified; Z68.31 Body mass index [BMI] 31.0-31.9, adult; Z79.899 Other long term (current) drug therapy | CPT/HCPCS: 93005; 99284 ==

== ENCOUNTER → 2023-07-03 | Day surgery (SDC) | payer BC ==
[~2023-07-03] MED LIST: Acetaminophen/HYDROcodone 325-5 MG Tab PO PRN; Bupivacaine 0.25% 10 ML SDV ONE; Dexamethasone 4 MG/ML 5 ML MDV ONE; EPINEPHrine 1 MG/ML 30 ML MDV IRR SCH; HYDROmorphone 0.5 MG/0.5 ML Syringe ONE; Ketorolac 30 MG/ML SDV ONE; Lactated Ringers 1,000 ML IV SCH; Lidocaine 1% 4 ML ONE; Ondansetron 4 MG/2 ML SDV ONE; Propofol 200 MG/20 ML SDV ONE; Sodium Chloride 0.9% 10 ML Syringe FLUSH PRN; Sodium Chloride 0.9% 10 ML Syringe FLUSH SCH; VANCOmycin 1.5 GM/300 ML 1.5 GM in Premix Bag 1 BAG IV ONE; VANCOmycin 2 GM/400 ML 2 GM in Premix Bag 1 BAG IV ONE; ceFAZolin 2 GM Vial ONE; fentaNYL 100 MCG/2 ML SDV ONE
== END | disposition home or self-care (01) ==
LOC: JD.SDS 08:42
PROVIDERS: ATTEND Orthopaedic Surgery
DX: S83.241A Other tear of medial meniscus, current injury, right knee, initial encounter (principal); G89.29 Other chronic pain; F41.9 Anxiety disorder, unspecified; R05.9 Cough, unspecified; F32.A Depression, unspecified; E66.9 Obesity, unspecified; Z79.82 Long term (current) use of aspirin; Z68.33 Body mass index [BMI] 33.0-33.9, adult
CPT/HCPCS: 29881; J0171; J0690; J1100; J1170; J1885; J2405; J2704; J3010; J3370; J3490; J7120; 01400; 01402

== ENCOUNTER 2023-07-22 08:46 | Emergency (ER) | payer BC ==
[2023-07-22] MEDS ORDERED: Acetaminophen/oxyCODONE 325-5 MG Tab PO ONE (10:47)
== END 2023-07-22 14:05 | disposition home or self-care (01) ==
LOC: JD.ED 08:46
DX: M25.561 Pain in right knee (principal); S83.411S Sprain of medial collateral ligament of right knee, sequela; F17.210 Nicotine dependence, cigarettes, uncomplicated; E66.9 Obesity, unspecified
CPT/HCPCS: 73721; 99283; A9270